=== PATIENT | male | born 1945 | race Caucasian/White ===

== ENCOUNTER → 2017-02-04 | Outpatient (CLI) | payer OTHER | END | disposition home or self-care (01) | LOC: PCVCCLINIC 11:43 | PROVIDERS: ATTEND Internal Medicine Cardiovascular Disease | DX: I44.7 Left bundle-branch block, unspecified (principal); I25.10 Atherosclerotic heart disease of native coronary artery without angina pectoris; E78.00 Pure hypercholesterolemia, unspecified; R00.1 Bradycardia, unspecified; Z87.891 Personal history of nicotine dependence; Z79.82 Long term (current) use of aspirin; Z95.1 Presence of aortocoronary bypass graft | CPT/HCPCS: 36415; 80061; 93005; G0463 ==

== ENCOUNTER → 2018-03-03 | Outpatient (CLI) | payer OTHER ==
[~2018-03-03] MED LIST: REGADENOSON 0.4 MG/5 ML DISP.SYRIN. IV
== END | disposition home or self-care (01) ==
LOC: PCVCIMAG 09:39
DX: I25.10 Atherosclerotic heart disease of native coronary artery without angina pectoris (principal); I44.7 Left bundle-branch block, unspecified; Z87.891 Personal history of nicotine dependence
CPT/HCPCS: 78452; 93017; A9500; J2785

== ENCOUNTER → 2018-08-18 | Outpatient (CLI) | payer OTHER | END | disposition home or self-care (01) | LOC: PCVCCLINIC 10:52 | PROVIDERS: ATTEND Internal Medicine Cardiovascular Disease | DX: I25.10 Atherosclerotic heart disease of native coronary artery without angina pectoris (principal); E78.00 Pure hypercholesterolemia, unspecified; I44.7 Left bundle-branch block, unspecified; I10 Essential (primary) hypertension; Z95.1 Presence of aortocoronary bypass graft; Z79.82 Long term (current) use of aspirin; Z87.891 Personal history of nicotine dependence | CPT/HCPCS: 93005; G0463 ==

== ENCOUNTER → 2019-02-16 | Outpatient (CLI) | payer OTHER ==
--- NOTE | 2019-02-16 13:48 | PCVCIMAG ---
APPROVED REPORT Study performed: 02/16/2019 12:56:11 EXAM: Comprehensive 2D, Doppler, and color-flow Echocardiogram Patient Location: Echo lab Status: routine BSA: 1.66 HR: 62 bpmBP: 118/70 mmHg Rhythm: LBBB Other Information Study Quality: Adequate Indications CAD s/p cabg, LBBB 2D Dimensions IVSd: 8.54 (7-11mm) LVDd: 41.58 mm PWd: 7.52 (7-11mm) LVDs: 30.26 (25-40mm) Left Atrium: 32.36 (27-40mm) Aortic Root: 30.03 mm LV Single Plane 4CH: 48.99 % LV Single Plane 2CH: 56.53 % Biplane EF: 49.9 % Volumes Left Atrial Volume (Systole) Single Plane 4CH: 29.61 mLSingle Plane 2CH: 39.55 mL LA ESV Index: 24.00 mL/m2 Aortic Valve AoV Peak Fritz.: 1.16 m/s AO Peak Gr.: 5.41 mmHgLVOT Max P.27 mmHg LVOT Max V: 0.90 m/s Mitral Valve E/A Ratio: 1.1 MV Decel. Time: 306.01 ms MV E Max Fritz.: 0.54 m/s MV A Fritz.: 0.48 m/s IVRT: 141.87 ms Pulmonary Valve PV Peak Fritz.: 1.22 m/sPV Peak Gr.: 5.93 mmHg Pulmonary Vein P Vein S: 0.36 m/sP Vein A: 0.61 m/s P Vein D: 0.50 m/sP Vein A Dur.: 90.0 msec P Vein S/D Ratio: 0.72 Tricuspid Valve TR Peak Fritz.: 2.66 m/s TR Peak Gr.: 28.21 mmHg Left Ventricle The left ventricle is normal size. There is normal LV segmental wall motion. There is normal left ventricular wall thickness. The left ventricular ejection fraction is within the lower limits of normal range. LVEF is 50%. Grade II - pseudonormal filling dynamics. Right Ventricle The right ventricle is normal size. The right ventricular systolic function is normal. Atria The left atrium size is normal. The right atrium size is normal. Aortic Valve The aortic valve is normal in structure. No aortic regurgitation is present. There is no aortic valvular stenosis. Mitral Valve The mitral valve is normal in structure. Trace mitral regurgitation. No evidence of mitral valve stenosis. Tricuspid Valve The tricuspid valve is normal in structure. Mild tricuspid regurgitation with PAP of 35 mmHg. Pulmonic Valve The pulmonary valve is normal in structure. Mild pulmonic regurgitation. Great Vessels The aortic root is normal in size. IVC is normal in size and collapses >50% with inspiration. Pericardium There is no pericardial effusion. There is no pleural effusion. <Conclusion> The left ventricle is normal size. There is normal left ventricular wall thickness. The left ventricular ejection fraction is within the lower limits of normal range. Grade II - pseudonormal filling dynamics. The right ventricle is normal size. The left atrium size is normal. The aortic valve is normal in structure. Trace mitral regurgitation. Mild tricuspid regurgitation with PAP of 35 mmHg.
== END | disposition home or self-care (01) ==
LOC: PCVCIMAG 12:36
PROVIDERS: ATTEND Internal Medicine Cardiovascular Disease
DX: I07.1 Rheumatic tricuspid insufficiency (principal); I25.10 Atherosclerotic heart disease of native coronary artery without angina pectoris; Z95.1 Presence of aortocoronary bypass graft
CPT/HCPCS: 93306